=== PATIENT | male | born 1940 | race Caucasian/White ===

== ENCOUNTER 2017-05-15 08:16 | Inpatient (IN) | payer MEDICARE ==
[~2017-05-15] VITALS: Ht 175.3 cm; Wt 76.4 kg
[~2017-05-15 08:16] MED LIST: ASPI-1009 PO; CILO100T PO; KRIL1CAP6 PO; LISI-600 PO; METO25TA6 PO; MULT-1066 PO; SILD100T PO; UBID1CAP54 PO
[2017-05-15] MEDS ORDERED: aspirin 81mg tab.chew PO ONE (08:35)
[2017-05-15] MEDS ORDERED: furosemide 10 MG/1 ML 10ml inj IV ONE (08:40)
[2017-05-15] MEDS ORDERED: nitroGLYCERIN-Tridil 50MG/D5W 250 ML IV ONE ×2 (08:40→08:55)
[2017-05-15 08:44] LABS: BASOPHILS % (AUTO) 0.1 % (0-1); EOSINOPHILS # (AUTO) 0.3 X10'3 (0-0.9); EOSINOPHILS % (AUTO) 1.2 % (0-6); HEMATOCRIT 35.6 % (42.0-52.0); LYMPHOCYTES # (AUTO) 1.8 X10'3 (1.1-4.8); LYMPHOCYTES % (AUTO) 7.8 % (21-51); MEAN CORPUSCULAR HEMOGLOBIN 29.7 PG (27.0-31.0); MEAN CORPUSCULAR HGB CONC 33.6 % (33.0-36.5); MEAN CORPUSCULAR VOLUME 88.3 FL (78-98); MEAN PLATELET VOLUME 8.9 FL (7.4-10.4); MONOCYTES # (AUTO) 0.9 X10'3 (0-0.9); MONOCYTES % (AUTO) 3.9 % (2-12); PLATELET COUNT 293 X10'3 (140-440); RED BLOOD COUNT 4.03 X10'6 (4.70-6.10); RED CELL DISTRIBUTION WIDTH 15.6 % (11.5-14.5)
[2017-05-15 09:08] LABS: ALANINE AMINOTRANSFERASE 119 U/L (12-78); ALBUMIN/GLOBULIN RATIO 0.8 (1.1-1.5); ALKALINE PHOSPHATASE 100 IU/L (46-116); ANION GAP 9 (8-16); ASPARTATE AMINO TRANSFERASE 72 U/L (10-37); BILIRUBIN,TOTAL 0.4 MG/DL (0.1-1.0); BLOOD UREA NITROGEN 38 MG/DL (7-18); BUN/CREATININE RATIO 28.4 (5.4-32.0); CALCIUM 8.9 MG/DL (8.5-10.1); CHLORIDE 105 MMOL/L (99-107); CREATININE 1.34 MG/DL (0.60-1.10); GLUCOSE 153 MG/DL (70-104); MAGNESIUM 1.4 MG/DL (1.5-2.4); POTASSIUM 4.2 MMOL/L (3.5-5.1); SODIUM 141 MMOL/L (135-145); TOTAL CARBON DIOXIDE 27.1 MMOL/L (24-32); TOTAL PROTEIN 6.7 G/DL (6.4-8.2); eGFR 52 ML/MIN
[2017-05-15] MEDS ORDERED: levoFLOXACIN-Levaquin 750MG/D5 150 ML IV STA (09:28)
[2017-05-15] MEDS ORDERED: magnesium 4gm in 100ml NS 100 ML IV PRN (10:10)
[2017-05-15] MEDS ORDERED: HYDROcodone/acetaminophen 10/325mg tab PO PRN (10:10)
[2017-05-15] MEDS ORDERED: morphine 4 MG/ML inj SYRINge IV PRN (10:10)
[2017-05-15] MEDS ORDERED: ondansetron/PF 4mg/2ml inj IV PRN (10:10)
[2017-05-15] MEDS ORDERED: mag hydrox/Alum hydrox/simeth 30ml oral suspension PO PRN (10:10)
[2017-05-15] MEDS ORDERED: SILDENAFIL CITRATE 100 MG PO PRN (10:10)
[2017-05-15] MEDS ORDERED: magnesium hydroxide 30ml (MOM) UD suspension PO PRN (10:10)
[2017-05-15] MEDS ORDERED: potassium Cl 40MEQ/NS 500ml 500 ML IV PRN ×2 (10:10)
[2017-05-15] MEDS ORDERED: magnesium 2GM in 50ml NS 50 ML IV PRN (10:10)
[2017-05-15] MEDS ORDERED: HYDROcodone/acetaminophen 5mg/325mg tablet PO PRN (10:10)
[2017-05-15] MEDS ORDERED: acetaminophen 325mg tablet PO PRN (10:10)
[2017-05-15] MEDS ORDERED: potassium Cl 20 mEq SR tablet PO PRN (10:10)
[2017-05-15] MEDS ORDERED: normal saline 1000ML IV soln IVB ONE (10:15)
[2017-05-15] MEDS ORDERED: iohexol 350MG/ML 100ml bottle IV ONE (10:32)
[2017-05-15] MEDS ORDERED: ATOR40TA72 (13:10)
[2017-05-15] MEDS ORDERED: FURO20TA4 (13:10)
[2017-05-15] MEDS ORDERED: AZAT50TA35 (13:10)
[2017-05-15] MEDS ORDERED: CARV-50 (13:10)
[2017-05-15] MEDS ORDERED: PRED10TA (13:10)
[2017-05-15 18:30] VITALS: BP 150/51
[2017-05-15] MEDS: cilostazol 50mg tablet PO SCH (20:00)
[2017-05-15] MEDS: metoprolol tartrate 25mg tablet PO SCH (21:31)
[2017-05-15 22:00] VITALS: BP 122/64
[2017-05-15] MEDS: piperacillin/tazo 3.375gm/50ml 50 ML IV SCH (22:42)
[2017-05-15] MEDS ORDERED: vancomycin/NS 1 GM ADD-VANTAGE 250 ML IV ONE (22:45)
[2017-05-15] MEDS ORDERED: piperacillin/tazo 3.375gm/50ml 50 ML IV ONE (23:55)
[2017-05-16 02:00] VITALS: BP 121/64
[2017-05-16] MEDS ORDERED: piperacillin/tazo 3.375gm/50ml 50 ML IV ONE (03:23)
[2017-05-16] MEDS: piperacillin/tazo 3.375gm/50ml 50 ML IV SCH ×4 (03:33→20:49)
[2017-05-16 04:26] LABS: BASOPHILS % (AUTO) 0.3 % (0-1); EOSINOPHILS # (AUTO) 0.4 X10'3 (0-0.9); HEMATOCRIT 32.4 % (42.0-52.0); HEMOGLOBIN 11.1 g/dl (14.0-17.9); LYMPHOCYTES # (AUTO) 1.4 X10'3 (1.1-4.8); LYMPHOCYTES % (AUTO) 9.9 % (21-51); MEAN CORPUSCULAR HEMOGLOBIN 29.8 PG (27.0-31.0); MEAN CORPUSCULAR HGB CONC 34.2 % (33.0-36.5); MEAN CORPUSCULAR VOLUME 87.2 FL (78-98); MEAN PLATELET VOLUME 9.8 FL (7.4-10.4); MONOCYTES # (AUTO) 1.1 X10'3 (0-0.9); MONOCYTES % (AUTO) 7.8 % (2-12); NEUTROPHILS # (AUTO) 11.3 X10'3 (1.8-7.7); PLATELET COUNT 230 X10'3 (140-440); RED BLOOD COUNT 3.71 X10'6 (4.70-6.10); WHITE BLOOD COUNT 14.3 X10'3 (4.5-11.0)
[2017-05-16 04:31] LABS: ALBUMIN 2.5 G/DL (3.4-5.0); ANION GAP 9 (8-16); BLOOD UREA NITROGEN 31 MG/DL (7-18); BUN/CREATININE RATIO 19.7 (5.4-32.0); CALCIUM 8.4 MG/DL (8.5-10.1); CHLORIDE 102 MMOL/L (99-107); CREATININE 1.57 MG/DL (0.60-1.10); GLUCOSE 97 MG/DL (70-104); MAGNESIUM 1.2 MG/DL (1.5-2.4); POTASSIUM 3.3 MMOL/L (3.5-5.1); SODIUM 140 MMOL/L (135-145); TOTAL CARBON DIOXIDE 29.1 MMOL/L (24-32); eGFR 43 ML/MIN
[2017-05-16 07:00] VITALS: BP 142/79
[2017-05-16] MEDS: aspirin 81mg tablet.DR PO SCH (08:00)
[2017-05-16] MEDS: enoxaparin 30mg/0.3ml syringe SQ SCH (08:00)
[2017-05-16] MEDS: lisinopril 20mg tablet PO SCH (08:00)
[2017-05-16] MEDS ORDERED: levoFLOXACIN-Levaquin 500mg/D5 100 ML IV SCH (08:00)
[2017-05-16] MEDS: cilostazol 50mg tablet PO SCH ×2 (08:00→19:43)
[2017-05-16] MEDS: metoprolol tartrate 25mg tablet PO SCH ×2 (08:00→19:43)
[2017-05-16] MEDS ORDERED: LIP PO SCH (08:00)
[2017-05-16] MEDS ORDERED: EPA PO SCH (08:00)
[2017-05-16] MEDS: K and/or MAG REPLACEMENT MC SCH (08:00)
[2017-05-16] MEDS ORDERED: [UNRECOGNIZED DRUG - OTHER] PO SCH (08:00)
[2017-05-16] MEDS ORDERED: ASTX PO SCH (08:00)
[2017-05-16] MEDS ORDERED: non-formulary drug (Ubidecarenone/Vit E Acetate (Co Q-10 100 Mg Softgel) 1 EACH) PO SCH (08:00)
[2017-05-16] MEDS ORDERED: KRILL PO SCH (08:00)
[2017-05-16] MEDS ORDERED: DHA PO SCH (08:00)
[2017-05-16] MEDS: multivitamins, therapeutics tablet PO SCH (08:00)
[2017-05-16] MEDS ORDERED: prednisone 10mg tablet PO SCH (08:30)
[2017-05-16] MEDS: lactobacillus rhamnosus 10,000 MMU CELLS/CAPSULE PO SCH ×2 (09:15→19:43)
[2017-05-16] MEDS: furosemide 20 MG/2 ML vial IV SCH (09:15)
[2017-05-16] MEDS: predniSONE 5mg tablet PO SCH (09:18)
[2017-05-16] MEDS: magnesium Cl slow-release 64mg tablet PO PRN ×2 (10:08→21:08)
[2017-05-16] MEDS: potassium Cl 20 mEq SR tablet PO PRN ×3 (10:08→21:55)
[2017-05-16 11:00] VITALS: BP 122/53
[2017-05-16] MEDS ORDERED: vancomycin/NS 1 GM ADD-VANTAGE 250 ML IV SCH (12:00)
[2017-05-16 18:30] VITALS: BP 113/48
[2017-05-16 22:00] VITALS: BP 104/42
[2017-05-16] MEDS: vancomycin/NS 1 GM ADD-VANTAGE 250 ML IV SCH (23:45)
[2017-05-17 02:00] VITALS: BP 94/67
[2017-05-17] MEDS: piperacillin/tazo 3.375gm/50ml 50 ML IV SCH ×4 (02:00→19:14)
[2017-05-17 05:34] LABS: BASOPHILS % (AUTO) 0 % (0-1); EOSINOPHILS # (AUTO) 0.3 X10'3 (0-0.9); EOSINOPHILS % (AUTO) 1.8 % (0-6); HEMATOCRIT 31.4 % (42.0-52.0); HEMOGLOBIN 10.7 g/dl (14.0-17.9); LYMPHOCYTES # (AUTO) 1.4 X10'3 (1.1-4.8); LYMPHOCYTES % (AUTO) 8.9 % (21-51); MEAN CORPUSCULAR HEMOGLOBIN 29.5 PG (27.0-31.0); MEAN CORPUSCULAR VOLUME 86.9 FL (78-98); MEAN PLATELET VOLUME 9.7 FL (7.4-10.4); MONOCYTES # (AUTO) 1.1 X10'3 (0-0.9); MONOCYTES % (AUTO) 7.2 % (2-12); NEUTROPHILS # (AUTO) 12.5 X10'3 (1.8-7.7); NEUTROPHILS % (AUTO) 82.1 % (42-75); PLATELET COUNT 221 X10'3 (140-440); RED BLOOD COUNT 3.62 X10'6 (4.70-6.10); RED CELL DISTRIBUTION WIDTH 15.9 % (11.5-14.5); WHITE BLOOD COUNT 15.3 X10'3 (4.5-11.0)
[2017-05-17 05:52] LABS: ALBUMIN 2.4 G/DL (3.4-5.0); ANION GAP 9 (8-16); BLOOD UREA NITROGEN 44 MG/DL (7-18); BUN/CREATININE RATIO 20.4 (5.4-32.0); CALCIUM 8.5 MG/DL (8.5-10.1); CHLORIDE 104 MMOL/L (99-107); CREATININE 2.16 MG/DL (0.60-1.10); GLUCOSE 118 MG/DL (70-104); MAGNESIUM 1.6 MG/DL (1.5-2.4); SODIUM 140 MMOL/L (135-145); TOTAL CARBON DIOXIDE 27.5 MMOL/L (24-32); eGFR 30 ML/MIN
[2017-05-17 06:00] VITALS: BP 135/61
[2017-05-17] MEDS: cilostazol 50mg tablet PO SCH ×2 (08:00→19:15)
[2017-05-17] MEDS: K and/or MAG REPLACEMENT MC SCH (08:00)
[2017-05-17] MEDS: aspirin 81mg tablet.DR PO SCH (08:28)
[2017-05-17] MEDS: lactobacillus rhamnosus 10,000 MMU CELLS/CAPSULE PO SCH ×2 (08:28→19:14)
[2017-05-17] MEDS: lisinopril 20mg tablet PO SCH (08:28)
[2017-05-17] MEDS: predniSONE 5mg tablet PO SCH (08:29)
[2017-05-17] MEDS: multivitamins, therapeutics tablet PO SCH (08:29)
[2017-05-17] MEDS: metoprolol tartrate 25mg tablet PO SCH ×2 (08:29→19:14)
[2017-05-17] MEDS: furosemide 20 MG/2 ML vial IV SCH (08:30)
[2017-05-17] MEDS: enoxaparin 30mg/0.3ml syringe SQ SCH (08:39)
[2017-05-17 11:00] VITALS: BP 134/67
[2017-05-17] MEDS ORDERED: VANCOMYCIN LEVEL IV NR (11:30)
[2017-05-17 12:05] LABS: BASOPHILS % (AUTO) 0.1 % (0-1); EOSINOPHILS # (AUTO) 0.5 X10'3 (0-0.9); EOSINOPHILS % (AUTO) 3.1 % (0-6); HEMATOCRIT 35.4 % (42.0-52.0); HEMOGLOBIN 11.9 g/dl (14.0-17.9); LYMPHOCYTES # (AUTO) 0.8 X10'3 (1.1-4.8); LYMPHOCYTES % (AUTO) 4.6 % (21-51); MEAN CORPUSCULAR HEMOGLOBIN 29.7 PG (27.0-31.0); MEAN CORPUSCULAR HGB CONC 33.7 % (33.0-36.5); MEAN CORPUSCULAR VOLUME 88.3 FL (78-98); MEAN PLATELET VOLUME 9.4 FL (7.4-10.4); MONOCYTES # (AUTO) 0.9 X10'3 (0-0.9); MONOCYTES % (AUTO) 5.4 % (2-12); NEUTROPHILS # (AUTO) 14.3 X10'3 (1.8-7.7); NEUTROPHILS % (AUTO) 86.8 % (42-75); PLATELET COUNT 246 X10'3 (140-440); RED BLOOD COUNT 4.02 X10'6 (4.70-6.10); RED CELL DISTRIBUTION WIDTH 16.5 % (11.5-14.5); WHITE BLOOD COUNT 16.4 X10'3 (4.5-11.0)
[2017-05-17 12:14] LABS: ALBUMIN 2.8 G/DL (3.4-5.0); ANION GAP 8 (8-16); BLOOD UREA NITROGEN 44 MG/DL (7-18); BUN/CREATININE RATIO 18.9 (5.4-32.0); CHLORIDE 105 MMOL/L (99-107); CREATININE 2.33 MG/DL (0.60-1.10); GLUCOSE 99 MG/DL (70-104); SODIUM 143 MMOL/L (135-145); TOTAL CARBON DIOXIDE 30.1 MMOL/L (24-32); eGFR 27 ML/MIN
[2017-05-17 13:50] LABS: VANCOMYCIN,RANDOM 12.4 UG/ML
[2017-05-17 15:00] VITALS: BP 133/69
[2017-05-17 19:00] VITALS: BP 150/52
[2017-05-17 23:00] VITALS: BP 141/63
[2017-05-18] MEDS: vancomycin/NS 1 GM ADD-VANTAGE 250 ML IV SCH (00:48)
[2017-05-18] MEDS: piperacillin/tazo 3.375gm/50ml 50 ML IV SCH ×3 (02:55→13:43)
[2017-05-18 03:00] VITALS: BP 123/54
[2017-05-18] MEDS ORDERED: VANCOMYCIN LEVEL IV SCH (03:00)
[2017-05-18 05:36] LABS: BASOPHILS % (AUTO) 0.3 % (0-1); EOSINOPHILS # (AUTO) 0.3 X10'3 (0-0.9); EOSINOPHILS % (AUTO) 2.9 % (0-6); HEMATOCRIT 29.2 % (42.0-52.0); HEMOGLOBIN 9.9 g/dl (14.0-17.9); LYMPHOCYTES # (AUTO) 1.3 X10'3 (1.1-4.8); LYMPHOCYTES % (AUTO) 10.6 % (21-51); MEAN CORPUSCULAR HEMOGLOBIN 29.6 PG (27.0-31.0); MEAN CORPUSCULAR HGB CONC 33.8 % (33.0-36.5); MEAN CORPUSCULAR VOLUME 87.5 FL (78-98); MEAN PLATELET VOLUME 9.8 FL (7.4-10.4); MONOCYTES # (AUTO) 0.8 X10'3 (0-0.9); MONOCYTES % (AUTO) 6.4 % (2-12); NEUTROPHILS # (AUTO) 9.6 X10'3 (1.8-7.7); NEUTROPHILS % (AUTO) 79.8 % (42-75); PLATELET COUNT 211 X10'3 (140-440); RED BLOOD COUNT 3.34 X10'6 (4.70-6.10); RED CELL DISTRIBUTION WIDTH 16.2 % (11.5-14.5); WHITE BLOOD COUNT 12.1 X10'3 (4.5-11.0)
[2017-05-18 06:00] VITALS: BP 120/47
[2017-05-18 06:00] LABS: ALBUMIN 2.4 G/DL (3.4-5.0); ANION GAP 9 (8-16); BLOOD UREA NITROGEN 54 MG/DL (7-18); BUN/CREATININE RATIO 25.1 (5.4-32.0); CALCIUM 8.5 MG/DL (8.5-10.1); CHLORIDE 108 MMOL/L (99-107); CREATININE 2.15 MG/DL (0.60-1.10); GLUCOSE 103 MG/DL (70-104); MAGNESIUM 1.7 MG/DL (1.5-2.4); SODIUM 145 MMOL/L (135-145); eGFR 30 ML/MIN
[2017-05-18] MEDS: K and/or MAG REPLACEMENT MC SCH (08:00)
[2017-05-18] MEDS: cilostazol 50mg tablet PO SCH (08:00)
[2017-05-18] MEDS ORDERED: vancomycin/NS 1 GM ADD-VANTAGE 250 ML IV PRN (08:00)
[2017-05-18] MEDS: metoprolol tartrate 25mg tablet PO SCH (08:21)
[2017-05-18] MEDS: lisinopril 20mg tablet PO SCH (08:21)
[2017-05-18] MEDS: predniSONE 5mg tablet PO SCH (08:22)
[2017-05-18] MEDS: aspirin 81mg tablet.DR PO SCH (08:22)
[2017-05-18] MEDS: lactobacillus rhamnosus 10,000 MMU CELLS/CAPSULE PO SCH (08:22)
[2017-05-18] MEDS: multivitamins, therapeutics tablet PO SCH (08:22)
[2017-05-18] MEDS: enoxaparin 30mg/0.3ml syringe SQ SCH (08:26)
[2017-05-18] MEDS ORDERED: FURO20TA4 PO (12:51)
[2017-05-18] MEDS ORDERED: AMOX-422 PO (12:51)
[2017-05-18] MEDS ORDERED: LISI-600 PO (12:51)
[2017-05-18] MEDS ORDERED: VANCOMYCIN LEVEL IV ONE (23:30)
== END 2017-05-18 15:02 | disposition home or self-care (01) | DRG 871 ==
LOC: ER 08:17 → ED HOLD 10:09 → PCU 3S 18:00 → CMPBEDREQ 19:58 → PCU 3S 05-17 18:05
PROVIDERS: ADMIT Internal Medicine; ATTEND Internal Medicine
PROC: BW241ZZ Computerized Tomography (CT Scan) of Chest and Abdomen using Low Osmolar Contrast (ICD-10-PCS; principal; 2017-05-15)
DX: A41.9 Sepsis, unspecified organism (principal); J18.9 Pneumonia, unspecified organism; J96.01 Acute respiratory failure with hypoxia; I50.21 Acute systolic (congestive) heart failure; I13.0 Hypertensive heart and chronic kidney disease with heart failure and stage 1 through stage 4 chronic kidney disease, or unspecified chronic kidney disease; M60.9 Myositis, unspecified; N18.9 Chronic kidney disease, unspecified; I25.10 Atherosclerotic heart disease of native coronary artery without angina pectoris; Z95.1 Presence of aortocoronary bypass graft; Z79.82 Long term (current) use of aspirin; Z79.899 Other long term (current) drug therapy
CPT/HCPCS: 36415; 71045; 71275; 80048; 80053; 80202; 83735; 83880; 84145; 84484; 85025; 87070; 87502; 87503; 93005; 96365; 96375; 99285; J1650; J1940; J1956; J2543; J3370; J3490; J7030; J7512; Q9967